=== PATIENT | male | born 1995 | race Caucasian/White ===

== ENCOUNTER → 2018-07-28 | Outpatient (CLI) | payer BC ==
--- NOTE | 2018-07-28 14:30 | US ---
EXAMINATION TYPE: US scrotum with doppler. Grayscale and color Doppler Duplex imaging performed of christ davis scrotum. DATE OF EXAM: 07/28/2018 COMPARISON: US 08/14/15 CLINICAL HISTORY: N50.819 TESTICULAR PAIN. Patient states right epididymectomy 4-5 months ago due to chronic pain. Now feels lump, ? scar tissue. EXAM MEASUREMENTS: TESTICLES: Right Testicle: 4.6 x 3.0 x 2.3 cm Left Testicle: 4.3 x 3.0 x 2.1 cm EPIDIDYMIS HEAD: Right Epididymis: Surgically Absent cm Left Epididymis: 0.8 x 0.8 x 0.7 cm Doppler performed to assess for testicular vascularity; good bilateral color flow and waveforms are s een. There is no evidence of testicular torsion. Presence of hydroceles: Small amount free fluid seen superiorly. On the right this measures 2.9 x 1. 6 cm. On the left there is only trace fluid. Fluid is loculated on the right and simple on the left. Presence of varicoceles: No IMPRESSION: 1. Surgical absence of the right epididymis with multiloculated small extratesticular fluid collectio n measuring approximately 2.9 x 1.6 cm, likely postoperative seroma. 2. Trace left hydrocele.
== END | disposition home or self-care (01) ==
LOC: RADUSWWP 12:50
PROVIDERS: ATTEND Urology
DX: N50.819 Testicular pain, unspecified (principal)
CPT/HCPCS: 76870; 93975